=== PATIENT | male | born 1950 | race Caucasian/White ===

== ENCOUNTER 2025-05-23 07:06 | Emergency (ER) | payer MEDICARE, SELFPAY ==
--- NOTE | ~2025-05-23 | XR_ITS ---
EXAMINATION: XR CHEST 1 VIEW HISTORY: CP COMPARISON: Comparison is made with the prior examination dated 04/12/2019. FINDINGS: A single AP portable view of the chest performed at 9:20 AM is submitted. The lungs are expanded and clear. There is no pleural effusion, pneumothorax, or pulmonary vascular congestion. The heart is normal in size. There is degenerative disc disease of the spine. XR/XR chest 1V IMPRESSION: No acute cardiopulmonary abnormality. Electronically signed by: Salvador Bermudez MD 05/23/2025 09:50 AM EDT
[2025-05-23 07:19] VITALS: BP 192/86; PULSE 70; RESP 16; TEMP 36.7; O2SAT 98; BMI 28.1
--- NOTE | 2025-05-23 08:17 | ECG_ITS ---
Test Reason : hypertensive Blood Pressure : */* mmHG Vent. 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
--- NOTE | 2025-05-23 08:27 | ED.SKABFB ---
HPI - Skin/Abscess/Foreign Bdy General Chief complaint: Skin/Abscess/Foreign Body Stated complaint: pt states has a bite on right leg Time Seen by Provider: 05/23/25 08:05 Source: patient and RN notes reviewed Mode of arrival: ambulatory Limitations: no limitations History of Present Illness ED Provider: Meghann Hunter PA-C HPI narrative: This is a 75-year-old male, with no known medical history, that presents to the emergency department with a chief concern of a bite on his right leg. He was working in his yard last Friday, 7 days ago when he noticed a greg on his right lower leg that was red and was accompanied by some itching. Since Friday he has cleaned the wound and used calamine lotion as well as [id number] topical antihistamine cream to alleviate the itching. In the emergency department today, he does not complain of any itching, and the wound has a bright red center with some redness around it. He notably has some ?soreness? around his left shoulder and left side of his chest for the last month. He does not regularly see a primary care provider, and has no known medical history. Denies fevers, chills, SOB or body aches. MD complaint: insect bite/sting Onset (ago): day(s) Tetanus up to date: unsure Location: RLE Associated symptoms: denies other symptoms Related Data Previous Rx's ?Medication ?Instructions ?Recorded cephalexin 500 mg capsule 500 mg PO QID 7 days #28 caps 05/23/25 doxycycline hyclate 100 mg tablet 100 mg PO BID 10 days #20 tabs 05/23/25 Allergies Allergy/AdvReac Type Severity Reaction Status Date / Time No Known Allergies Allergy Verified 05/23/25 07:20 Review of Systems Review of Systems: Yes all other systems are reviewed and are negative Constitutional: Constitutional: Reports as per HPI, Denies body ache(s), Denies chills and Denies fever(s) Eyes: Eyes: Reports as per HPI, Denies change in vision and Denies eye discharge ENT: Reports system reviewed and no additional complaints, except as documented, Reports as per HPI, Reports Normal hearing present and Denies facial pain Cardiovascular: Cardiovascular: Reports as per HPI and Denies chest pain Respiratory: Respiratory: Reports as per HPI and Denies cough Gastrointestinal: Gastrointestinal: Reports as per HPI, Reports no additional gastrointestinal complaints, Denies abdominal pain, Denies diarrhea, Denies nausea and Denies vomiting Genitourinary: Genitourinary: Reports as per HPI Musculoskeletal: Musculoskeletal: Reports no additional musculoskeletal complaints and Reports as per HPI Integumentary/Breasts: Skin/Breast: Reports system reviewed and no additional complaints, except as docu, Reports as per HPI, Reports erythema, Denies rash and Denies wounds Neurologic: Reports Normal hearing present Psychiatric: Psychiatric: Reports no additional psychiatric complaints and Reports as per HPI Endocrine: Endocrine: Reports no additional endocrine complaints and Reports as per HPI Hematologic/Lymphatic: Hematologic/Lymphatic: Reports no additional hematologic/lymphatic complaints and Reports as per HPI Allergic/Immunologic: Allergic/Immunologic: Reports no additional allergic/immunologic complaints and Reports as per HPI [facility] Social History Social History Smoked in Last 30 Days: No Use of substances other than those prescribed or required for medical reasons: No Advance Directives: No Advance Directives Information Provided: Yes Physical Exam Vital Signs: Vital Signs: Last Vital Signs Temp 98.0 F 05/23/25 10:54 Pulse 56 05/23/25 10:54 Resp 16 05/23/25 10:54 BP 178/84 H 05/23/25 10:54 Pulse Ox 97 05/23/25 10:54 O2 Del Method Room Air 05/23/25 10:54 BMI result Body Mass Index 28.1 Const: General: cooperative, comfortable and no acute distress Orientation/consciousness: patient oriented x3 Limitations: no limitations HEENT: Head: Yes normal to inspection, Yes normocephalic and Yes atraumatic Ears: hearing grossly normal bilaterally General nose exam: Normal external nose present Face and sinus: Yes normal facial exam Mouth: Normal oral and palatal mucosa present, oropharynx normal and moist mucous membranes Throat: Yes posterior oropharynx normal Eyes: General: appearance normal, both eyes and all related structures Eyelids: Yes eyelids normal Conjunctivae: conjunctivae normal Sclerae: sclerae normal Pupils: Equal, round and reactive pupils present EOM: EOMs intact bilaterally Neck: Neck: Yes normal visual inspection, Yes full ROM and Yes no lymphadenopathy Lymphatic: no lymphadenopathy noted Chest: Chest palpation & inspection: normal inspection of the chest Resp: Effort & Inspection: normal respiratory effort and able to speak in complete sentences Auscultation: clear to auscultation bilaterally, no crackles, no rales, no rhonchi and no wheezes Cardio: Rate: regular rate Rhythm: regular rhythm Heart sounds: S1 normal heart sound present and S2 normal heart sound present GI: Inspection: Yes normal to inspection Skin: Other: Erythematous lesion, 1 cm in diameter, of the medial aspect of the right lower extremity. There is darkening of the skin circumferentially around the lesion measuring approximately 6 cm in diameter. Slight central clearing just outside of central lesion General skin exam: no rashes or lesions noted Lesions: lesion noted Trauma: no lacerations or abrasions Wounds: no wounds Neuro: General: patient oriented x3 Cranial nerves: Yes Equal, round and reactive pupils present and Yes Normal hearing present Extrem: General: Yes normal to inspection Right upper extremity: normal to inspection Left upper extremity: normal to inspection Right lower extremity: normal to inspection Left lower extremity: normal to inspection Medications Administered Discontinued Medications Generic Name Dose Route Start Last Admin Trade Name Freq PRN Reason Stop Dose Admin Diphtheria/Tetanus/Acell Pertussis 0.5 ml 05/23/25 10:16 05/23/25 10:27 Diphth,Pertus(Acell),Tet Adult 0.5 Ml Syringe IM 05/23/25 10:17 0.5 ml .ONCE ONE Administration Medical Decision Making Medical Decision Making MDM Narrative: This is a 75-year-old male with no known past medical history, with no primary care provider, presenting to the emergency department with a skin lesion first appearing 7 days ago. The lesion was first noticed after working in his yard. Per the patient, the lesion was described as erythematous with pruritus, relieved with calamine lotion as well as topical antihistamine lotion. He is unsure if he was bit by any insect. He denies seeing any ticks on his body. On exam, there is a bright red, flat lesion approximately 1 cm in diameter, with darkening of the skin circumferentially around the lesion, measuring approximately 6 cm in diameter. The lesion is without tenderness or itchiness at the time of presentation. When discussing his recent medical history, the patient admitted to mild discomfort in his left anterior chest as well as his left shoulder. Patient's blood pressure is notably elevated in triage at 192/86, and he is afebrile. Plan involves covering for soft tissue infection as well as potential tick bite and Lyme disease with doxycycline, and CMP, CBC, troponin, tick panel, EKG, and chest x-ray will be ordered to evaluate possible cause of the left-sided discomfort. 10:00 AM 05/23/2025 (Meghann Hunter PA-C): Labs returned, he has no leukocytosis, stable H&H, chemistry revealing slight elevation in creatinine at 1.2 however a previous was performed in 2019 therefore unable to report if this is acute change. Previous creatinine was 1.1. Slight hyperglycemic at 132 however this was nonfasting. Negative troponin. EKG nonischemic. Chest x-ray unremarkable. Discussed overall findings with patient. Will treat with course of doxycycline for 10 days as patient has possible erythema migrans. Discussed wound care instructions. Updated tetanus as patient is unsure when his last Tdap was. He understands and agrees with plan. Patient stable for discharge. Differential Diagnosis Differential Diagnoses: The differential diagnosis associated with the presentation includes Erythema migrans Cellulitis Erysipelas Lyme disease MRSA cellulitis Admission/Observation Consideration of admission/observation: Escalation of care including admission/observation considered Lab Data [facility] Lab Attestation statement: I reviewed the patient's lab results. See MDM and course 05/23/25 08:26 05/23/25 08:26 Labs: Lab Results 05/23/25 Range/Units 08:26 WBC 8.2 (4.8-10.8) X10*3/uL RBC 5.32 (4.60-5.80) X10*6/uL Hgb 15.9 (14.0-18.0) g/dl Hct 46.4 (42.0-52.0) % MCV 87.2 (80.0-98.0) fL MCH 29.9 (27.0-33.0) pg MCHC 34.3 (31.0-36.0) g/dl RDW 13.2 (11.0-16.0) % Plt Count 232 (160-400) X10*3/uL MPV 9.3 L (9.4-12.4) fL Immature Gran % (Auto) 0.4 (0.0-0.4) % Neut % (Auto) 65.7 (45-73) % Lymph % (Auto) 21.8 (20-40) % [place] % (Auto) 10.4 (2-11) % Eos % (Auto) 1.2 (0-4) % Baso % (Auto) 0.5 (0-2) % Lymph # (Auto) 1.8 (1.2-4.9) X10*3/uL [place] # (Auto) 0.9 (0.1-1.2) X10*3/uL Eos # (Auto) 0.1 (0.0-0.4) X10*3/uL Baso # (Auto) 0.0 (0.0-0.2) X10*3/uL Abs Immat Gran (auto) 0.03 (0.00-0.03) X10*3/uL Absolute Neuts (auto) 5.4 (2.0-8.3) x10*3/uL Absolute Nucleated RBC 0.000 (0.0-0.012) X10*3/uL Nucleated RBC % (auto) 0.0 (0.0-0.2) /100WBC Sodium 138 (135-145) mmol/L Potassium 4.3 (3.3-5.1) mmol/L Chloride 108 (96-108) mmol/L Carbon Dioxide 21 L (22-29) mmol/L Anion Gap 13 (12-20) BUN 18 H (9-16) mg/dL Creatinine 1.24 (0.5-1.4) mg/dL Estim Creat Clear Calc 50.1 Estimated GFR 57 Random Glucose 132 H (60-115) mg/dL Calcium 8.9 (8.4-10.2) mg/dL Magnesium 2.5 (1.6-2.6) mg/dL Total Bilirubin 0.3 (0.0-1.0) mg/dL Direct Bilirubin 0.1 (0.0-0.5) mg/dL AST 24 (5-37) U/L ALT 22 (0-40) U/L Alkaline Phosphatase 86 (39-117) U/L Troponin I High Sens 2.7 (<3.5-35.0) ng/L Total Protein 7.3 (6.5-8.0) g/dL Albumin 4.6 (3.5-5.0) g/dL Independent Interpretation I performed an independent interpretation of an: EKG Interpretation: EKG normal sinus rhythm at a ventricular rate of 78 beats per minute, VT interval 152, QT QTC 366/417, no STEMI. Radiology Impression Discussion of test interpretation with radiology: I have reviewed the radiologist's reading. Radiologist Impression: EXAMINATION: XR CHEST 1 VIEW HISTORY: CP COMPARISON: Comparison is made with the prior examination dated 04/12/2019. FINDINGS: A single AP portable view of the chest performed at 9:20 AM is submitted. The lungs are expanded and clear. There is no pleural effusion, pneumothorax, or pulmonary vascular congestion. The heart is normal in size. There is degenerative disc disease of the spine. XR/XR chest 1V IMPRESSION: No acute cardiopulmonary abnormality. Electronically signed by: Salvador Bermudez MD 05/23/2025 09:50 AM EDT RP Dictated By: Salvador Bermudez MD Signed By: <Electronically signed by Salvador Bermudez MD in OV> External Record Review External record reviewed: Inpatient record, Office record, Outpatient record, Prior outpatient labs, Prior outpatient radiology, Primary care record and Outside ED record Discharge Plan Discharge Clinical Impression: Cellulitis Qualifiers: Site of cellulitis of extremity: lower extremity Laterality: right Patient Disposition: Home, Self-Care Instructions: Cellulitis (ED) Additional Instructions: You were seen in the emergency department due to redness on your right calf. It is unclear if this is the start of an early skin infection or a possible rash from a tick bite. We are treating you with antibiotics to cover for both a skin infection and early Lyme disease. Keflex as an antibiotic to be taken 4 times a day. Doxycycline is to be taken twice a day. Please be advised that doxycycline can make you very sensitive to the sun therefore we are appropriate sun protection when outside. As discussed, your tick panel blood work takes several days to return. We will call you if any of your blood work is positive. Your overall workup today was reassuring. Your chest x-ray was normal, EKG was normal, and blood work did not show any concerning things. You should have a primary care physician to follow-up with. Please keep a close eye on this wound, you may cleansed with warm soapy water. Do not pick at wound. If any new or worsening symptoms occur including but not limited to worsening redness, swelling, fevers or chills, please seek emergent care. We updated your tetanus in the department today. Prescriptions: New doxycycline hyclate 100 mg tablet 100 mg PO BID 10 Days Qty: 20 0RF cephalexin 500 mg capsule 500 mg PO QID 7 Days Qty: 28 0RF Referrals: [facility] [place] Primary [facility] [Provider Group, Internal Medicine] Interventions: ED Discharge Assessment Last Done: 05/23/25 10:54 Discharge Date/Time: 05/23/25 10:55 Print Language: Italian
[2025-05-23 08:37] LABS: MANUAL DIFF FLAG NO
[2025-05-23 08:39] LABS: Hematocrit 46.4 % (42.0-52.0); Hemoglobin 15.9 g/dl (14.0-18.0); Imm Gran Abs Auto 0.03 X10*3/uL (0.00-0.03); Imm Gran Pct Auto 0.4 % (0.0-0.4); Lymphocytes Absolute Auto 1.8 X10*3/uL (1.2-4.9); Mean Corpuscular HGB Conc 34.3 g/dl (31.0-36.0); Mean Corpuscular Hemoglobin 29.9 pg (27.0-33.0); Mean Corpuscular Volume 87.2 fL (80.0-98.0); NRBC Abs Auto 0.000 X10*3/uL (0.0-0.012); NRBC Pct Auto 0.0 /100WBC (0.0-0.2); Platelet Count 232 X10*3/uL (160-400); Red Blood Count 5.32 X10*6/uL (4.60-5.80); White Blood Count 8.2 X10*3/uL (4.8-10.8)
[2025-05-23 08:57] LABS: Alanine Aminotransferase 22 U/L (0-40); Albumin Level 4.6 g/dL (3.5-5.0); Alkaline Phosphatase 86 U/L (39-117); Anion Gap 13 (12-20); Aspartate Amino Transferase 24 U/L (5-37); Blood Urea Nitrogen 18 mg/dL (9-16); Calcium 8.9 mg/dL (8.4-10.2); Carbon Dioxide 21 mmol/L (22-29); Chloride 108 mmol/L (96-108); Creatinine Clr Calc Pharmacy 50.1; Estimated Glomerular Filt Rate 57; Magnesium 2.5 mg/dL (1.6-2.6); Potassium 4.3 mmol/L (3.3-5.1); Sodium 138 mmol/L (135-145); Total Protein 7.3 g/dL (6.5-8.0)
[2025-05-23 09:04] LABS: Troponin-I High Sensitivity 2.7 ng/L (<3.5-35.0)
[2025-05-23] MEDS: Diphth,Pertus(ACell),Tet Adult 0.5 ML SYRINGE IM (10:27)
[2025-05-23 10:53] VITALS: BP 178/84; PULSE 56; RESP 16; TEMP 36.7; O2SAT 97
[2025-05-23 10:54] VITALS: BP 178/84; PULSE 56; RESP 16; TEMP 36.7; O2SAT 97
[2025-05-24 18:24] LABS: Lyme Abs Screen <0.90 index
[2025-06-09 07:03] LABS: A. Phagocytophilum Ab IgG 1:128 (<1:64); A. Phagocytophilum Ab IgM <1:20 (<1:20); Interpretation PAST INFECTION
== END 2025-05-23 10:55 | disposition home or self-care (01) ==
PROVIDERS: Physician Assistant Medical; Emergency Provider Emergency Medicine
DX: L03.115 Cellulitis of right lower limb (principal); M25.512 Pain in left shoulder; Z23 Encounter for immunization; R21 Rash and other nonspecific skin eruption; S80.861A Insect bite (nonvenomous), right lower leg, initial encounter; T75.89XA Other specified effects of external causes, initial encounter; X58.XXXA Exposure to other specified factors, initial encounter; Y93.9 Activity, unspecified; Y92.9 Unspecified place or not applicable; Y99.9 Unspecified external cause status
CPT/HCPCS: 36415; 71045; 80048; 80076; 83735; 84484; 85025; 86617; 86618; 86666; 86753; 90471; 90715; 93005; 99284

== ENCOUNTER → 2025-05-23 08:17 | Outpatient (BNV) | payer MEDICARE, SELFPAY | PROVIDERS: Emergency Provider Emergency Medicine; Visit Provider Internal Medicine Cardiovascular Disease | DX: I25.2 Old myocardial infarction (principal) | CPT/HCPCS: 93010 ==

== ENCOUNTER → 2025-05-23 08:18 | Outpatient (BNV) | payer MEDICARE, SELFPAY | PROVIDERS: Emergency Provider Emergency Medicine; Visit Provider Radiology Diagnostic Radiology | DX: R07.9 Chest pain, unspecified (principal) | CPT/HCPCS: 71045 ==

== ENCOUNTER 2025-06-18 13:50 | Emergency (ER) | payer MEDICARE, SELFPAY ==
--- NOTE | 2025-06-18 14:01 | ED_ITS ---
HPI - General Adult General Chief complaint: General Medical Stated complaint: need lyme test Time Seen by Provider: 06/18/25 14:03 Source: patient Mode of arrival: ambulatory Limitations: no limitations History of Present Illness ED Provider: Melly Diaz PA-C HPI narrative: Patient is a 75 year old assigned male at with a history of recently completing treatment for a tick borne illness presenting to the emergency department today for follow up. Patient states that he was told he should follow up so he came here to be seen. Patient denies any complaints at this time. Patient denies any symptoms. Patient states that he feels fine but wanted to make sure to follow up like he was directed to. Patient denies any other complaints at this time. Related Data Previous Rx's ?Medication ?Instructions ?Recorded cephalexin 500 mg capsule 500 mg PO QID 7 days #28 cap s 05/23/25 doxycycline hyclate 100 mg tablet 100 mg PO BID 10 day s #20 tabs 05/23/25 Allergies Allergy/AdvReac Type Severity Reaction Status Date / Time No Known Allergies Allergy Verified 06/18/25 14:04 Review of Systems Constitutional: Constitutional: Reports as per HPI Eyes: Eyes: Reports as per HPI ENT: Reports as per HPI Cardiovascular: Cardiovascular: Reports as per HPI Respiratory: Respiratory: Reports as per HPI Gastrointestinal: Gastrointestinal: Reports as per HPI Genitourinary: Genitourinary: Reports as per HPI Musculoskeletal: Musculoskeletal: Reports as per HPI Integumentary/Breasts: Skin/Breast: Reports as per HPI Neurologic: Reports as per HPI Psychiatric: Psychiatric: Reports as per HPI Endocrine: Endocrine: Reports as per HPI Hematologic/Lymphatic: Hematologic/Lymphatic: Reports as per HPI Allergic/Immunologic: Allergic/Immunologic: Reports as per HPI [facility] Past Medical History Attestation statement: The following information was validated with the patient. Source: old records reviewed and nursing notes reviewed Social History Social History Advance Directives: No Advance Directives Information Provided: No Do you have a plan to hurt others: No Plan Physical Exam ED Vital Signs: Vital Signs - 24 hr 06/18/25 14:02 06/18/25 14:06 Temperature 98 F 98 F Pulse Rate 75 75 Respiratory Rate 18 18 Blood Pressure 191/93 H 191/93 H Pulse Oximetry 98 98 Oxygen Delivery Method Room Air Room Air BMI result Body Mass Index 26.6 Const General: cooperative, no acute distress, alert and awake Nutritional Appearance: well nourished Orientation/consciousness: patient oriented x3 HENMT Head: Yes normal to inspection and Yes atraumatic Ears: hearing grossly normal bilaterally and external ears normal General nose exam: Normal external nose present, no nasal discharge noted and no epistaxis Face and sinus: Yes normal facial exam, No abrasion and No laceration Mouth: Normal oral and palatal mucosa present, no drooling and no muffled voice Eyes General: appearance normal, both eyes and all related structures Periorbital: periorbital findings normal Eyelids: Yes eyelids normal Conjunctivae: conjunctivae normal Pupils: Equal, round and reactive pupils present EOM: EOMs intact bilaterally Neck Neck: Yes normal visual inspection and Yes full ROM Resp Effort & Inspection: normal respiratory effort and able to speak in complete sentences Neuro General: patient oriented x3, moves all extremities and CN's II-XI intact bilaterally Cranial nerves: Yes Equal, round and reactive pupils present Cognition (Neuro): normal cognition Extrem General: Yes normal to inspection, Yes full ROM and Yes capillary refill normal Psych Appearance: grossly normal Mental Status: mental status grossly normal Affect: normal affect Attitude: cooperative Thought process: Normal thought process present Thought content: Normal thought content present Insight: Good insight present (Psych) Medical Decision Making Medical Decision Making MDM Narrative: Patient is a 75 year old assigned male at with a history of recently completing treatment for a tick borne illness presenting to the emergency department today for follow up. Patient's physical exam was unremarkable. I explained my physical exam findings to the patient. I answered all questions asked by the patient. I explained to the patient that his original provider wanted him to follow up on an outpatient basis with his primary care team. I stressed the importance of the patient taking his medication as directed (either prescribed or as the over the counter packaging recommends). I stressed the importance of the patient following up with his primary care provider. I stressed the importance of the patient returning to the emergency department immediately if his symptoms were to worsen or if he were to develop any dizziness, shortness of breath, difficulty breathing, chest pain, blurry vision, loss of vision, nausea, vomiting, abdominal pain, fever, chills, back pain, or any other complaints. Patient verbalized agreement and understanding with this treatment plan and discharge. Differential Diagnosis Differential Diagnoses: The differential diagnosis associated with the presentation includes Normal physical examination Admission/Observation Consideration of admission/observation: Escalation of care including admission/observation considered Patient would have been admitted to the hospital had his clinical presentation warranted hospital admission. Discharge Plan Discharge Clinical Impression: Normal physical examination Patient Disposition: Home, Self-Care Instructions: Normal Exam (ED) Additional Instructions: You finished your medication as directed and have no symptoms - please follow up with your primary care team. IF you are prescribed home medications and/or you are taking over the counter medications at home - it is very important you continue to do so as prescribed / directed unless told otherwise. Follow up with your primary care provider. Return to the emergency department immediately if your symptoms worsen or if you develop any numbness, tingling, d izziness, shortness of breath, difficulty breathing, chest pain, blurry vision, loss of vision, nausea, vomiting, abdominal pain, fever, chills, back pain, or any other complaints. If you do not have a primary care provider - call any of the below numbers to establish and follow up with a primary care provider. [facility] [place] Primary Care ([place]) [phone] [place] [address], [address] [facility] [place] Primary Care ([address] [place]) [phone] [place] [address], [address] [facility], [address] [facility] [place] Primary Care ([address] [place]) [phone] [place] [address], [address] [facility], [address] [facility] [place] Primary Care ([place]) [phone] [place] [address], [address] [facility], [address] [facility] [place] Family Medicine [phone] [address] [facility], [address] Please see the information below about our Patient Portal. If you are not yet enrolled in the [facility] Patient Portal, you will receive an enrollment email invitation following your visit to any [facility] [place] [place] care setting. You may also self-enroll in the Patient Portal by visiting our website: [email or web address] The following information is required to access the Patient Portal: - Your [facility] [place] [place] Medical Record Number - Your personal home email address (must match what is in your electronic medical record, Registration staff can assist with this) - Name - Date of Capabilities of the Patient Portal: - Message some providers - View upcoming appointments - Access your health summary, medical history, and visit history - View current conditions and allergies - View procedure and lab results - View your medications, including guidelines, side effects, and precautions - Complete pre-appointment questionnaires requested by your provider - Ready summary reports of your office visits and procedures To access the Patient Portal Mobile [place], follow these directions: - Search [facility] in the [place] Store or AIT Store - Download the [place] - Search for [facility] - Enter your login/password Prescriptions: No Action doxycycline hyclate 100 mg tablet 100 mg PO BID 10 Days Qty: 20 0RF cephalexin 500 mg capsule 500 mg PO QID 7 Days Qty: 28 0RF Interventions: ED Discharge Assessment Last Done: 06/18/25 14:06 Discharge Date/Time: 06/18/25 14:14 Print Language: Occitan
[2025-06-18 14:02] VITALS: BP 191/93; PULSE 75; RESP 18; TEMP 36.6; O2SAT 98; BMI 26.6
[2025-06-18 14:06] VITALS: BP 191/93; PULSE 75; RESP 18; TEMP 36.6; O2SAT 98
== END 2025-06-18 14:14 | disposition home or self-care (01) ==
LOC: HO.ED 14:06
PROVIDERS: Emergency Provider Emergency Medicine
DX: Z86.19 Personal history of other infectious and parasitic diseases (principal); Z11.9 Encounter for screening for infectious and parasitic diseases, unspecified
CPT/HCPCS: 99282